=== PATIENT | female | born 1965 | race Caucasian/White ===

== ENCOUNTER 2019-01-15 22:34 | Emergency (ER) | payer OTHER ==
--- NOTE | 2019-01-16 00:49 | ER Document Report ---
ED Medical Screen (RME) - General Chief Complaint: Finger Injury Stated Complaint: FINGER INJURY Time Seen by Provider: 01/16/19 00:46 Primary Care Provider: JEROME FERRER MD [Primary Care Provider] - Follow up as needed Notes: 53-year-old healthy female presents emergency department for laceration of her left hand. She was using some electric hedge tremors and her hand got caught in it. She sustained a laceration to her index, middle, and ring finger of her left hand. Left index finger is approximately 1/2 cm just underneath the nail, middle finger is a large laceration across the nail bed of the DIP, and ring finger is approximately a 1 cm laceration on the nail bed. Last tetanus one year ago. Flexion and extension intact to PIPs and DIPs of index, middle, and ring fingers actively and to resistance. Active oozing of the middle finger and of the ring finger. No evidence of foreign body. I have greeted and performed a rapid initial assessment of this patient. A comprehensive ED assessment and evaluation of the patient, analysis of test results and completion of medical decision making process will be conducted by an additional ED providers. TRAVEL OUTSIDE OF THE [place] IN LAST 30 DAYS: No Physical Exam - Vital signs Vitals: Temp Pulse Resp BP Pulse Ox 98.2 F 58 L 16 133/78 H 100 01/15/19 23:54 01/15/19 23:54 01/15/19 23:54 01/15/19 23:54 01/15/19 23:54 Course - Vital Signs Vital signs: Temp Pulse Resp BP Pulse Ox 98.2 F 58 L 16 133/78 H 100 01/15/19 23:54 01/15/19 23:54 01/15/19 23:54 01/15/19 23:54 01/15/19 23:54 Doctor's Discharge - Discharge Referrals: JEROME FERRER MD [Primary Care Provider] - Follow up as needed
--- NOTE | 2019-01-16 01:53 | RADIOLOGY REPORT (SQ) ---
EXAM DESCRIPTION: XR HAND 3 OR MORE VIEWS COMPLETED DATE/TME: 01/16/2019 00:49 CLINICAL HISTORY: 53 years, Female, Laceration to index, middle, ring finger left hand COMPARISON: None. NUMBER OF VIEWS: 3 TECHNIQUE: 3 view left hand LIMITATIONS: None. FINDINGS: Soft tissue injury of the third digit with overlying bandaging material. No acute fracture or dislocation IMPRESSION: Soft tissue injury of the third digit as above copyright 2010 [employer]- All Rights Reserved
[2019-01-16] MEDS ORDERED: LIDOCAINE 1% INJ-PF (10 MG/ML) 30 ML SDV INJ ONE (02:03)
[2019-01-16] MEDS ORDERED: LIDOCAINE 1% INJ (10 MG/ML) 10 ML MDV ONE (02:04)
[2019-01-16] MEDS ORDERED: ONDANSETRON ODT 4 MG TAB (6 TAB/ER DISP) PO PRN (03:02)
[2019-01-16] MEDS ORDERED: HYDROCODONE/ACETAMINOPHEN 5-325 MG (6 TAB/ER DISP) PO PRN (03:02)
[2019-01-16] MEDS ORDERED: DIAZEPAM 5 MG TABLET PO ONE (03:07)
--- NOTE | 2019-01-16 03:07 | ER Document Report ---
ED Hand/Wrist Injury - General Chief Complaint: Finger Injury Stated Complaint: FINGER INJURY Time Seen by Provider: 01/16/19 00:46 Primary Care Provider: JEROME FERRER MD [NO LOCAL MD] - Follow up as needed Notes: Patient is a 53 year old female that comes to the Emergency Department for chief complaint of laceration to the left fingers. She was using electric hedge trimmers and her hand briefly was in contact with the blade by accident when maneuvering the tool. She sustained lacerations to the left index finger, multiple lacerations to the middle finger, and a tiny laceration to the ring finger. She denies any other injuries. Last tetanus was 1 year ago. She takes no daily medications. TRAVEL OUTSIDE OF THE [place] IN LAST 30 DAYS: No Past Medical History - General Information source: Patient - Social History Smoking Status: Never Smoker Chew tobacco use (# tins/day): No Drug Abuse: None Lives with: Family Family History: Reviewed & Not Pertinent Patient has suicidal ideation: No Patient has homicidal ideation: No - Medical History Medical History: Negative Renal/ Medical History: Denies: Hx Peritoneal Dialysis Surgical Hx: Negative - Immunizations Immunizations up to date: Yes Hx Diphtheria, Pertussis, Tetanus Vaccination: Yes Review of Systems - Review of Systems Constitutional: No symptoms reported EENT: No symptoms reported Cardiovascular: No symptoms reported Respiratory: No symptoms reported Gastrointestinal: No symptoms reported Genitourinary: No symptoms reported Female Genitourinary: No symptoms reported Musculoskeletal: See HPI Skin: See HPI Hematologic/Lymphatic: No symptoms reported Neurological/Psychological: No symptoms reported Physical Exam - Vital signs Vitals: Temp Pulse Resp BP Pulse Ox 98.2 F 58 L 16 133/78 H 100 01/15/19 23:54 01/15/19 23:54 01/15/19 23:54 01/15/19 23:54 01/15/19 23:54 - Notes Notes: GENERAL: Alert, interacts well. No acute distress. HEAD: Normocephalic, atraumatic. EYES: Pupils equal, round, and reactive to light. Extraocular movements intact. ENT: Oral mucosa moist, tongue midline. Oropharynx unremarkable. Airway patent. LUNGS: Clear to auscultation bilaterally, no wheezes, rales, or rhonchi. No respiratory distress. HEART: Regular rate and rhythm. No murmur ABDOMEN: Soft, non-tender. Non-distended. Bowel sounds present in all 4 quadrants. GENITOURINARY: Deferred EXTREMITIES: Left hand with lacerations over the palmar aspect of the index, middle, and ring fingers. Very small, superficial, almost self closing lacerations over the finger pad aspect of the index and ring fingers, jagged, irregular laceration over the middle finger pad which is approximately 2 cm in length in total with 2 flaps. However this is still partial-thickness and there is no extension past the subcutaneous area. Capillary refill and sensation intact. Normal strength against resistance with both flexion and extension of all fingers. BACK: no cervical, thoracic, lumbar midline tenderness. No saddle anesthesia, normal distal neurovascular exam. NEUROLOGICAL: Alert and oriented x3. Normal speech. . PSYCH: Normal affect, normal mood. SKIN: Warm, dry, normal turgor. No rashes or lesions noted. Course - Re-evaluation Re-evalutation: X-ray without evidence of fracture. Wounds cleaned thoroughly, repaired, because of dirty wounds and hand location patient was placed on Keflex. Discussed wound care, follow-up, and return precautions. Patient states understanding and agreement. - Vital Signs Vital signs: Temp Pulse Resp BP Pulse Ox 98.1 F 58 L 16 118/68 96 01/16/19 03:14 01/16/19 03:14 01/15/19 23:54 01/16/19 03:14 01/16/19 03:14 Procedures - Laceration/Wound Repair Left index finger Wound length (cm): 0.5 Wound's Depth, Shape: Superficial, Linear Wound explored: Clean, No foreign body removed Wound Repaired With: Dermabond Post-procedure wound care: Sterile dressing applied Post-procedure NV exam normal: Yes Complications: No Left middle finger Wound length (cm): 2 Wound's Depth, Shape: Irregular, Flap Laceration pre-procedure: Sterile PPE donned, Sterile drapes applied, Shur-Clens applied Anesthetic type: 1% Lidocaine Volume Anesthetic (mLs): 5 Wound explored: Clean, No foreign body removed Wound Repaired With: Sutures Suture Size/Type: 4:0, Nylon Number of Sutures: 7 Layer Closure?: No Post-procedure wound care: Sterile dressing applied Post-procedure NV exam normal: Yes Complications: No Left ring finger Wound length (cm): 0.5 Wound's Depth, Shape: Superficial, Linear Laceration pre-procedure: Sterile PPE donned, Sterile drapes applied, Shur-Clens applied Wound explored: Clean, No foreign body removed Wound Repaired With: Dermabond Notes: There is a tiny crack in the nail adjacent to the wound, although the wound from the finger does not extend to the nail and there does not appear to be a nailbed injury. Otherwise unremarkable. Discharge - Discharge Clinical Impression: Finger laceration Qualifiers: Encounter type: initial encounter Finger: middle finger Damage to nail status: without damage Foreign body presence: without foreign body Laterality: left Qualified Code(s): S61.213A - Laceration without foreign body of left middle finger without damage to nail, initial encounter Condition: Stable Disposition: HOME, SELF-CARE Instructions: Oral Narcotic Medication ([facility]) Additional Instructions: Sutures need to be removed from the left middle finger in approximately 1 week. The xeroform (yellow) dressing can stay on for 2-3 days and then needs to be removed. Clean with soap and water, dab dry. Avoid soaking. You can apply dressing and thin topical antibiotic. You can take the provided pain (norco) and nausea medication (zofran) tonight and tomorrow if needed, 1-2 tablets of each every 4-6 hours. The Dermabond on the fingers of the index and ring finger will come off on their own in about 1 week as well. If the Dermabond does not come off on its own, apply a topical antibiotic to remove it, do not apply antibiotic otherwise it wi ll come off prematurely. These can be washed and dabbed dry, but void scrubbing or soaking. Take Keflex antibiotic as prescribed. Follow-up with primary care. Return if you worsen including signs of infection such as swelling, redness, discolored drainage, fever, developing pain, or any other concerning or worsening symptoms. Prescriptions: Cephalexin Monohydrate [Keflex 500 mg Capsule] 500 mg PO TID #15 capsule Referrals: JEROME FERRER MD [NO LOCAL MD] - Follow up as needed
[2019-01-16 03:15] VITALS: BP 118/68
== END 2019-01-16 03:15 | disposition home or self-care (01) ==
LOC: ER 22:34
DX: S61.213A Laceration without foreign body of left middle finger without damage to nail, initial encounter (principal); W29.3XXA Contact with powered garden and outdoor hand tools and machinery, initial encounter
CPT/HCPCS: 99283; 73130; 12002; J3490